=== PATIENT | male | born 1965 | race Hispanic/Latino ===

== ENCOUNTER 2017-02-14 09:08 | Outpatient (CLI) | payer OTHER | END 2017-02-14 09:09 | disposition home or self-care (01) | LOC: SJX 09:08 | PROVIDERS: ATTEND Family Medicine | DX: Z53.9 Procedure and treatment not carried out, unspecified reason (principal) ==

== ENCOUNTER 2019-02-17 07:10 | Outpatient (CLI) | payer BC ==
--- NOTE | 2019-02-17 07:57 | ULT ---
SONOGRAM RIGHT UPPER QUADRANT: HISTORY: Abnormal liver function tests. FINDINGS: A small amount of nonshadowing echogenic material layers within the dependent portion of the gallblad sekou lumen. No shadowing stones are visible. No gallbladder wall thickening or pericholecystic fluid . The common duct is 0.6 cm. The liver is diffusely echogenic. No intrahepatic biliary dilatation. No free fluid. IMPRESSION: 1. Biliary sludge within the gallbladder is evident of chronic gallbladder dyskinesis. No evidence of acute biliary obstruction. 2. Hepatosteatosis. POS: TPC
== END 2019-02-17 07:11 | disposition home or self-care (01) ==
LOC: BICULT 07:10
PROVIDERS: ATTEND Family Medicine
DX: R74.0 Nonspecific elevation of levels of transaminase and lactic acid dehydrogenase [LDH] (principal); K76.89 Other specified diseases of liver; K82.8 Other specified diseases of gallbladder
CPT/HCPCS: 76705

== ENCOUNTER 2020-03-31 12:19 | Outpatient (CLI) | payer BC ==
--- NOTE | 2020-03-31 12:55 | RAD ---
XR Chest Pa Lat STANDARD HISTORY: Follow-up of Covid19 pneumonia COMPARISON: 03/01/2020 and 12/14/2019 FINDINGS: The heart size is normal. The lungs are well expanded without focal areas of consolidation, pneumothorax or pleural effusions. There is minimal scarring in the right midlung. IMPRESSION: No radiographic evidence of acute cardiopulmonary process.
== END 2020-03-31 12:20 | disposition home or self-care (01) ==
LOC: BICRAD 12:19
PROVIDERS: ATTEND Family Medicine
DX: Z87.01 Personal history of pneumonia (recurrent) (principal)
CPT/HCPCS: 71046